=== PATIENT | female | born 1965 | race Two or more races ===

== ENCOUNTER 2025-04-13 14:41 | Emergency (ER) | payer OTHER ==
[~2025-04-13] VITALS: Ht 154.9 cm; Wt 69.9 kg
[2025-04-13] MEDS ORDERED: SYNTHROID75 MCG PO (16:05)
[2025-04-13] MEDS ORDERED: KETOROLAC TROMETHAMINE 30 MG VIAL ONE (16:24)
[2025-04-13] MEDS ORDERED: KETOROLAC TROMETHAMINE 30 MG VIAL IM ONE (16:30)
[2025-04-13] MEDS ORDERED: DICLOFENAC SODI50 MG PO (19:34)
[2025-04-13] MEDS ORDERED: NORFLEX100MG PO (19:34)
== END 2025-04-13 21:02 | disposition home or self-care (01) ==
LOC: ER 14:41
DX: G89.11 Acute pain due to trauma (principal); M62.838 Other muscle spasm; V89.2XXA Person injured in unspecified motor-vehicle accident, traffic, initial encounter; M54.59 Other low back pain; M54.9 Dorsalgia, unspecified; M25.562 Pain in left knee; M25.561 Pain in right knee; E03.8 Other specified hypothyroidism; Z88.5 Allergy status to narcotic agent